=== PATIENT | male | born 1985 | race Caucasian/White ===

== ENCOUNTER 2016-11-09 11:10 | Observation (INO) | payer OTHER ==
[2016-11-09] MEDS ORDERED: Ondansetron HCl/PF 4 MG/2 ML Vial IVP PRN (16:48)
[2016-11-09] MEDS ORDERED: Dextrose 50% Abboject 50 ML SYRINGE SLOW IVP PRN (16:48)
[2016-11-09] MEDS ORDERED: Dextrose 5% in Water 1,000 ML IV PRN (16:48)
[2016-11-09] MEDS ORDERED: Ondansetron ODT 4 MG TAB PO PRN (16:48)
[2016-11-09] MEDS ORDERED: traMADol HCl 50 MG TAB PO PRN ×2 (16:48)
[2016-11-09 16:53] VITALS: BMI 25.0
[2016-11-09] MEDS: Acetaminophen 500 MG TAB PO SCH (17:18)
[2016-11-09] MEDS: Ibuprofen 800 MG TAB PO SCH (17:19)
--- NOTE | 2016-11-09 18:08 | RAD ---
THREE VIEWS RIGHT INDEX FINGER: Date: 11-09-16 History: Right index finger pain. Metacarpal phalangeal joint pain. FINDINGS: There is a fracture seen involving the proximal phalanx of the index finger with slight separation o f fracture fragments. This fracture does extends into the metacarpal phalangeal joint. No additional fracture is seen. There is no evidence of a dislocation. IMPRESSION: Displaced fracture, base of the proximal phalanx right index finger with intraarticular extension of the fracture. POS: [facility]
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
[2016-11-10] MEDS: Acetaminophen 500 MG TAB PO SCH ×3 (00:07→13:03)
[2016-11-10] MEDS: Ibuprofen 800 MG TAB PO SCH ×2 (00:10→09:21)
[2016-11-10 06:17] LABS: #Eosinphils 0.2 thou/uL (0.0-0.7); #Lymphocytes 1.7 thou/uL (1.20-3.40); #Monocytes 1.3 thou/uL (0.11-0.59); #Neutrophils 6.1 thou/uL (1.40-6.50); %Basophils 0.2 % (0.0-1.0); %Eosinophils 1.7 % (0.0-10.0); %Lymphocytes 18.1 % (21.0-51.0); %Monocytes 14.2 % (0.0-10.0); Hematocrit 42.8 % (42.0-52.0); Mean Platelet Volume 6.6 fL (7.4-10.4); Red Blood Cell (RBC) Count 4.35 mill/uL (4.70-6.10); White Blood Cell (WBC) Count 9.3 thou/uL (4.8-10.8)
[2016-11-10 06:40] LABS: Anion Gap 12 mmol/L (10-20); BUN (Urea Nitrogen) 13 mg/dL (8.9-20.6); Calc. Creatinine Clearance 176 mL/min (70-130); Calcium 8.9 mg/dL (7.8-10.44); Carbon Dioxide 26 mmol/L (22-29); Chloride 106 mmol/L (98-107); Estimated GFR-MDRD Greater than 90
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
[2016-11-10 08:53] VITALS: TEMP 98.7
--- NOTE | 2016-11-10 09:27 | RAD ---
SINGLE VIEW OF THE CHEST: Comparison: None. History: Pulmonary contusion. FINDINGS: Single view of the chest shows a normal sized cardiomediastinal silhouette. There is no evidence of consolidation, mass, or pleural effusion. The bones are unremarkable. IMPRESSION: No evidence of acute cardiopulmonary disease. POS: [facility]
[2016-11-10] MEDS ORDERED: Bacitracin Zinc 1 Packet TOP SCH (11:15)
[2016-11-10 12:29] VITALS: BP 113/60
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
== END 2016-11-10 13:43 | disposition home or self-care (01) ==
LOC: ERS 11:10 → SURG B 15:01
PROVIDERS: ADMIT Surgery; ATTEND Surgery
DX: S43.102A Unspecified dislocation of left acromioclavicular joint, initial encounter (principal); S62.610A Displaced fracture of proximal phalanx of right index finger, initial encounter for closed fracture; S27.329A Contusion of lung, unspecified, initial encounter; S06.0X9A Concussion with loss of consciousness of unspecified duration, initial encounter; S05.32XA Ocular laceration without prolapse or loss of intraocular tissue, left eye, initial encounter; S01.312A Laceration without foreign body of left ear, initial encounter; S00.83XA Contusion of other part of head, initial encounter; V48.5XXA Car driver injured in noncollision transport accident in traffic accident, initial encounter; Y93.84 Activity, sleeping; Y92.410 Unspecified street and highway as the place of occurrence of the external cause
CPT/HCPCS: 36415; 71010; 80048; 85025; 94640; 99285; G0378; G0390; G8978-GP-CH; G8979-GP-CH; G8980-GP-CH; J7620